=== PATIENT | female | born 1990 | race Caucasian/White ===

== ENCOUNTER 2023-02-17 19:58 | Emergency (ER) | payer OTHER, MEDICAID ==
[~2023-02-17] VITALS: Ht 165.1 cm; Wt 91.6 kg
[2023-02-17 20:55] VITALS: BP 132/74; PULSE 84; RESP 16; TEMP 97.5; O2SAT 98
--- NOTE | 2023-02-17 21:01 | NUR ---
TO LOBBY FOLLOWING TRIAGE
[2023-02-17] MEDS ORDERED: COROTSOL LEFT EAR (21:15)
[2023-02-17 21:21] VITALS: BP 126/72; PULSE 84; RESP 16; TEMP 97.5; O2SAT 98
--- NOTE | 2023-02-17 21:21 | NUR ---
Patient discharged with v/s stable. Written and verbal after care instructions given and explained. Patient alert, oriented and verbalized understanding of instructions. Ambulatory with steady gait. All questions addressed prior to discharge. ID band removed. Patient advised to follow up with PMD. Rx of cortisporin otic solution given. Patient educated on indication of medication including possible reaction and side effects. Opportunity to ask questions provided and answered.
== END 2023-02-17 21:21 | disposition home or self-care (01) ==
LOC: MED 19:58
DX: H60.92 Unspecified otitis externa, left ear (principal); Z79.899 Other long term (current) drug therapy
CPT/HCPCS: 99283

== ENCOUNTER 2023-08-03 13:58 | Emergency (ER) | payer OTHER, MEDICAID ==
[~2023-08-03] VITALS: Ht 165.1 cm; Wt 81.6 kg
[~2023-08-03 13:58] MED LIST: COROTSOL LEFT EAR
[2023-08-03 15:14] VITALS: BP 100/68; PULSE 74; RESP 18; TEMP 98.1; O2SAT 96
[2023-08-03] MEDS ORDERED: BENZ100C6 PO (15:38)
[2023-08-03] MEDS ORDERED: PSEU-250 PO (15:38)
[2023-08-03 16:25] VITALS: BP 100/68; PULSE 74; RESP 18; TEMP 98.1; O2SAT 96
[2023-08-03 17:46] LABS: FLU A ANTIGEN POSITIVE (NEGATIVE); FLU B ANTIGEN NEGATIVE (NEGATIVE)
== END 2023-08-03 16:25 | disposition home or self-care (01) ==
LOC: MED 13:58
DX: J10.1 Influenza due to other identified influenza virus with other respiratory manifestations (principal); Z20.822 Contact with and (suspected) exposure to COVID-19; Z79.899 Other long term (current) drug therapy
CPT/HCPCS: 99283